=== PATIENT | male | born 1995 | race African-American/Black ===

== ENCOUNTER 2016-12-06 11:12 | Emergency (ER) | payer OTHER ==
[2016-12-06 12:21] VITALS: BP 132/72
== END 2016-12-06 13:14 | disposition left against medical advice (07) ==
LOC: UCEAST 11:12
DX: Z11.3 Encounter for screening for infections with a predominantly sexual mode of transmission (principal); Z53.21 Procedure and treatment not carried out due to patient leaving prior to being seen by health care provider

== ENCOUNTER 2016-12-07 10:46 | Emergency (ER) | payer OTHER ==
[2016-12-07 11:17] VITALS: BP 135/70
--- NOTE | 2016-12-07 12:05 | UC ---
Complaint Male HPI - HPI Summary HPI Summary: Tries to get regular STI testing (every 4 months). Last testing in Jul or Aug, has had 2 partners since then. Is in steady sexual relationship now. Denies any drainage, masses, sores, or blisters. Would prefer to avoid genital exam today. - History of Current Complaint Chief Complaint: UCGU Stated Complaint: STD TESTING Time Seen by Provider: 12/07/16 11:34 Hx Obtained From: Patient Onset/Duration: Resolved Severity Currently: None Location: None Aggravating Factor(s): Nothing Alleviating Factor(s): Nothing Associated Signs And Symptoms: Positive: Negative. Negative: Penile Swelling, Penile Discharge - Allergies/Home Medications Allergies/Adverse Reactions: Allergies Allergy/AdvReac Type Severity Reaction Status Date / Time No Known Allergies Allergy Verified 12/07/16 11:18 PMH/Surg Hx/FS Hx/Imm Hx Endocrine History Of: Denies: Diabetes, Thyroid Disease, Hyperthyroidism, Hypothyroidism, Dyslipidemia Cardiovascular History Of: Denies: Cardiac Disorders, Hypertension, Pacemaker/ICD, Myocardial Infarction , Congestive Heart Failure, Atrial Fibrillation, Deep Vein Thrombosis, Bleeding Disorders Respiratory History Of: Denies: COPD, Asthma, Bronchitis, Pneumonia, Pulmonary Embolism GI/ History Of: Denies: Gastroesophageal Reflux, Ulcer, Gastrointestinal Bleed, Gall Bladder Disease, Kidney Stones, Diverticulitis, Renal Disease, Urosepsis Neurological History Of: Denies: TIA, CVA, Dementia, Seizures, Migraine Psychological History Of: Denies: Anxiety, Depression, Bipolar Disorder, Schizophrenia, Post Traumatic Stress Disorder Cancer History Of: Denies: Lung Cancer, Colorectal Cancer, Breast Cancer, Prostate Cancer, Cervical Cancer Other History Of: Negative For: HIV, Hepatitis B, Hepatitis C, Anticoagulant Therapy - Surgical History Surgical History: Yes Surgery Procedure, Year, and Place: DENTAL - Family History Known Family History: Negative: Cardiac Disease, Hypertension - Social History Lives: Alone Alcohol Use: None Substance Use Type: None Smoking Status (MU): Never Smoked Tobacco Review of Systems Constitutional: Negative Skin: Negative Eyes: Negative ENT: Negative Respiratory: Negative Cardiovascular: Negative Gastrointestinal: Negative Genitourinary: Negative Motor: Negative Neurovascular: Negative Musculoskeletal: Negative Neurological: Negative Psychological: Negative All Other Systems Reviewed And Are Negative: Yes Physical Exam Triage Information Reviewed: Yes Appearance: Well-Appearing, No Pain Distress, Well-Nourished Vital Signs: Initial Vital Signs Temp 97.4 F 12/07/16 11:11 Pulse 75 12/07/16 11:11 Resp 18 12/07/16 11:11 BP 135/70 12/07/16 11:11 Pulse Ox 98 12/07/16 11:11 Vital Signs Reviewed: Yes Eye Exam: Normal Eyes: Positive: Conjunctiva Clear ENT Exam: Normal ENT: Positive: Normal ENT inspection, Hearing grossly normal, Pharynx normal, TMs normal Dental Exam: Normal Neck exam: Normal Neck: Positive: Supple, Nontender, No Lymphadenopathy Respiratory Exam: Normal Respiratory: Positive: Chest non-tender, Lungs clear, Normal breath sounds, No respiratory distress, No accessory muscle use Cardiovascular Exam: Normal Cardiovascular: Positive: RRR, No Murmur Abdomen Description: Positive: Soft. Negative: CVA Tenderness (R), CVA Tenderness (L) Musculoskeletal Exam: Normal Musculoskeletal: Positive: ROM Intact Neurological Exam: Normal Neurological: Positive: Alert Psychological Exam: Normal Skin Exam: Other - pt declines genital exam. Understands he will need to return if he discovers new symptoms. Complaint Male Course/Dx - Differential Dx/Diagnosis Provider Diagnoses: Routine STI testing Discharge - Discharge Plan Condition: Stable Disposition: HOME Patient Education Materials: Sexually Transmitted Diseases (ED), Condom Use (ED ) Referrals: No Primary Care Phys,NOPCP [Primary Care Provider] - Additional Instructions: Labwork pending. Call or return if you have any new symptoms.
[2016-12-08 09:55] LABS: Syphilis Index < 0.1 Index
== END 2016-12-07 12:10 | disposition home or self-care (01) ==
LOC: UCEAST 10:46
DX: Z11.3 Encounter for screening for infections with a predominantly sexual mode of transmission (principal)
CPT/HCPCS: 36415; 86592; 86703; 86803; 87491; 87591; 99211; G0463

== ENCOUNTER 2017-05-08 16:19 | Emergency (ER) | payer OTHER ==
[2017-05-08 16:30] VITALS: BP 116/61
--- NOTE | 2017-05-08 16:41 | UC ---
Skin Complaint HPI - HPI Summary HPI Summary: bumps on the back of his scalp x 2 weeks not pain , not itchy also c/o dry cough x 1week , no fever, no chills, no nasal congestion - History of Current Complaint Chief Complaint: UCSkin Time Seen by Provider: 05/08/17 16:25 Stated Complaint: BUMPS ON SCALP Hx Obtained From: Patient Onset/Duration: Gradual Onset, Lasting Weeks - 2, Still Present Timing: Constant Onset Severity: Moderate Current Severity: Moderate Location: Discrete - posterior scalp Aggravating: Nothing Alleviating: Nothing Associated Signs & Symptoms: Positive: Negative - Allergy/Home Medications Allergies/Adverse Reactions: Allergies Allergy/AdvReac Type Severity Reaction Status Date / Time No Known Allergies Allergy Verified 05/08/17 16:30 Home Medications: Home Medications Tizanidine HCl [Zanaflex] 2 mg PO BID 05/08/17 [History Confirmed 05/08/17] Review of Systems Constitutional: Negative Skin: Negative Eyes: Negative ENT: Negative Respiratory: Cough Cardiovascular: Negative Gastrointestinal: Negative All Other Systems Reviewed And Are Negative: Yes PMH/Surg Hx/FS Hx/Imm Hx Previously Healthy: Yes Other History Of: Negative For: HIV, Hepatitis B, Hepatitis C, Anticoagulant Therapy - Surgical History Surgical History: Yes Surgery Procedure, Year, and Place: DENTAL - Family History Known Family History: Negative: Cardiac Disease, Hypertension - Social History Alcohol Use: None Substance Use Type: None Smoking Status (MU): Never Smoked Tobacco Physical Exam Triage Information Reviewed: Yes Appearance: Well-Appearing, No Pain Distress, Well-Nourished Vital Signs: Initial Vital Signs Temp 98.0 F 05/08/17 16:24 Pulse 94 05/08/17 16:24 Resp 17 05/08/17 16:24 BP 116/61 05/08/17 16:24 Pulse Ox 100 05/08/17 16:24 Vital Signs Reviewed: Yes Eye Exam: Normal Eyes: Positive: Conjunctiva Clear ENT: Positive: Normal ENT inspection, Hearing grossly normal, Pharynx normal Neck exam: Normal Neck: Positive: Supple, Nontender Respiratory: Positive: Chest non-tender, Lungs clear, Normal breath sounds Cardiovascular: Positive: RRR, No Murmur, Pulses Normal Abdominal Exam: Normal Skin: Positive: rashes - multipl papular lesions posterior scalp , mild swelling , no tenderness, no discharge Course/Dx - Diagnoses Provider Diagnoses: folliculitis. bronchitis Discharge - Discharge Plan Condition: Stable Disposition: HOME Prescriptions: Cephalexin CAP* [Keflex CAP*] 500 mg PO TID #30 cap Guaifenesin-Codeine [Cheratussin AC] 10 ml PO Q8H #120 ml MDD 30 ml Mupirocin 2% CREAM* [Bactroban 2% CREAM*] 1 applic TOPICAL TID #60 gm Patient Education Materials: Acute Bronchitis (ED), Folliculitis (ED) Referrals: No Primary Care Phys,NOPCP [Primary Care Provider] -
== END 2017-05-08 16:44 | disposition home or self-care (01) ==
LOC: UCCORT 16:19
DX: L73.9 Follicular disorder, unspecified (principal); J40 Bronchitis, not specified as acute or chronic
CPT/HCPCS: 99212; G0463

== ENCOUNTER 2017-11-30 19:00 | Emergency (ER) | payer OTHER ==
--- NOTE | 2017-11-30 19:35 | UC ---
Laceration HPI - HPI Summary HPI Summary: Pt presents for stitch removal. He tells me that in [facility] 9 days ago he underwent hair transplant and the doctor he saw told him to have his sutures removed in 8- 10 days from the back of his head. Denies fever, chills, pain, or discharge - History Of Current Complaint Stated Complaint: STICTCH REMOVAL ON HEAD Time Seen by Provider: 11/30/17 19:27 Hx Obtained From: Patient Laceration Location: Head - Allergies/Home Medications Allergies/Adverse Reactions: Allergies Allergy/AdvReac Type Severity Reaction Status Date / Time No Known Allergies Allergy Verified 11/30/17 19:29 PMH/Surg Hx/FS Hx/Imm Hx - Additional Past Medical History Additional PMH: None Previously Healthy: Yes Other History Of: Negative For: HIV, Hepatitis B, Hepatitis C, Anticoagulant Therapy - Surgical History Surgical History: Yes Surgery Procedure, Year, and Place: DENTAL - Family History Known Family History: Negative: Cardiac Disease, Hypertension - Social History Occupation: Employed Full-time Lives: With Family Alcohol Use: None Substance Use Type: None Smoking Status (MU): Never Smoked Tobacco Review of Systems Constitutional: Negative Skin: Other - Sutures back of head Respiratory: Negative Cardiovascular: Negative Neurovascular: Negative Musculoskeletal: Negative Neurological: Negative Psychological: Negative All Other Systems Reviewed And Are Negative: Yes Physical Exam - Summary Physical Exam Summary: GENERAL: NAD. WDWN. No pain distress. SKIN: On the back of the head there is a continuous suture extending from the LEFT posterior temporal region to the RIGHT posterior temporal region. Approx 6- 7 inches in length. Several areas are scabbed over. No drainage, bleeding, edema , or erythema. Good approximation. NECK: Supple. Nontender. No lymphadenopathy. CHEST: CTAB. No r/r/w. No accessory muscle use. Breathing comfortably and in no distress. CV: RRR. Without m/r/g. Pulses intact. Brisk cap refill. NEURO: Alert. CN II-XII grossly intact. PSYCH: Age appropriate behavior. Triage Information Reviewed: Yes Vital Signs: Last Vital Signs 11/30/17 19:32 Temperature 98.6 F Pulse Rate 72 Respiratory 16 Rate Blood Pressure 112/64 (mmHg) O2 Sat by Pulse 99 Oximetry Vital Signs Reviewed: Yes Laceration Course/Dx - Course/Dx Course Of Treatment: Given the extent of the scabs and scar tissue, the continuous suture was removed in sections. Time spent was ~30minutes as pt experienced some pain with removal of the scabbed areas. After removal, the site was explored and no remaining prolene suture material was appreciated. Scant bleeding was stopped with direct pressure. - Differential Dx - Laceration/Wound Provider Diagnoses: Complex suture removal back of head Discharge - Sign-Out/Discharge Documenting (check all that apply): Discharge - Discharge Plan Condition: Stable Disposition: HOME Patient Education Materials: Stitches Removal (ED) Referrals: No Primary Care Phys,NOPCP [Primary Care Provider] - Jana Nicholson MD [Medical Doctor] - As Soon As Possible Additional Instructions: If you develop a fever, shortness of breath, chest pain, new or worsening symptoms - please call your PCP or go to the ED. - Billing Disposition and Condition Condition: STABLE Disposition: HOME
[2017-11-30 19:38] VITALS: BP 112/64
== END 2017-11-30 20:24 | disposition home or self-care (01) ==
LOC: UCCORT 19:00
DX: Z48.02 Encounter for removal of sutures (principal)
CPT/HCPCS: 99212; G0463

== ENCOUNTER 2017-12-28 08:53 | Emergency (ER) | payer OTHER ==
[2017-12-28 09:10] VITALS: BP 125/77
--- NOTE | 2017-12-28 10:29 | UC ---
Abdominal Pain Male HPI - HPI Summary HPI Summary: 22 y/o male presents to the urgent care c/o acid reflux and a burning sensation in his throat that worsen after he had 2 episodes of vomiting last night. Pt reports he has PMHX of GERD. He has not taking Omeprazole for the past 6 months. Reflux started 2 days ago and yesterday after eating pasta w/ orange juice he developed vomiting. Symptoms resolved today, but he wants a Rx for his GERD and flonase spray. He also request screening for STD's. He likes to do the STD screening every time he changes a partner. Pt denies fever, abdominal pain, urinary symptoms, Hx of STD's, penile discharge, rash, hematoemesis, diarrhea or blood in stool. - History of Current Complaint Chief Complaint: UCGI Stated Complaint: ABD PAIN Time Seen by Provider: 12/28/17 10:07 Hx Obtained From: Patient Onset/Duration: Gradual Onset, Lasting Days - 2 days, Resolved, Worse Since - last night Severity Initially: Moderate Severity Currently: Mild Pain Intensity: 1 Pain Scale Used: 0-10 Numeric Location: Epigastric Radiates: No Character: Burning Aggravating Factor(s): Food Associated Signs And Symptoms: Positive: Vomiting - 2 episodes last night. Negative: Fever, Cough, Chest Pain, Dizzy, Back Pain, Constipation, Blood in Stool, Urinary Symptoms, Diarrhea - Risk Factors Testicular Torsion: Negative Cardiac Risk Factors: Negative - Allergies/Home Medications Allergies/Adverse Reactions: Allergies Allergy/AdvReac Type Severity Reaction Status Date / Time No Known Allergies Allergy Verified 12/28/17 09:03 Home Medications: Home Medications Cephalexin CAP* [Keflex CAP*] 500 mg PO TID 12/28/17 [History Confirmed 12/28/17 ] PMH/Surg Hx/FS Hx/Imm Hx - Additional Past Medical History Additional PMH: Folliculitis Previously Healthy: Yes GI/ History: Gastroesophageal Reflux Other History Of: Negative For: HIV, Hepatitis B, Hepatitis C, Anticoagulant Therapy - Surgical History Surgical History: Yes Surgery Procedure, Year, and Place: DENTAL, hair transplant surgery 2017 - Family History Known Family History: Positive: None - Pt denies PMHX Negative: Cardiac Disease, Hypertension - Social History Occupation: Employed Full-time Lives: With Family Alcohol Use: None Substance Use Type: None Smoking Status (MU): Never Smoked Tobacco Review of Systems Constitutional: Negative Skin: Negative Eyes: Negative ENT: Sore Throat - burning Respiratory: Negative Cardiovascular: Negative Gastrointestinal: Abdominal Pain - epigastric mild, Vomiting - 2 episodes which resolved today Genitourinary: Negative Motor: Negative Neurovascular: Negative Musculoskeletal: Negative Neurological: Negative Psychological: Negative Is Patient Immunocompromised?: No All Other Systems Reviewed And Are Negative: Yes Physical Exam - Summary Physical Exam Summary: Vital Signs Reviewed: Yes General:Patient is a well developed and nourished male who is sitting comfortable in the examining table. Patient is not in any acute respiratory distress. Eyes: Positive: Conjunctiva Clear - PERRLA, EOMI, fundi grossly normal ENT: Positive: Normal ENT inspection, Hearing grossly normal, Pharynx normal, TMs normal Neck: Positive: Supple, Nontender, No Lymphadenopathy Respiratory: Positive: Chest non-tender, Lungs clear, Normal breath sounds, No respiratory distress Cardiovascular: Positive: RRR,S1 and S2 present, No Murmur, Pulses Normal, Brisk Capillary Refill Abdomen Description: Positive: Nontender, Abd: Flat with no distention. No surface trauma, scars, incisions. hyperactive bowel sounds present in all four quadrants. No tenderness, guarding, rigidity to palpation. No masses palpated, no pulsation in epigastric area. No organomegaly. Negative Coral signs. No periumbilical tenderness. No rebound in the lower quadrants. NT over McBurneys point. Good femoral pulses bilaterally. No hernia noted. No CVAT bilaterally Musculoskeletal: Positive: Strength Intact, ROM Intact, No Edema,FROM in all major joints, no edema, no cyanosis or clubbing. Neuro: Alert and oriented x 3. No acute neurological deficits. Speech is normal. Psychological: WNL Skin: Dry and warm Triage Information Reviewed: Yes Vital Signs: Initial Vital Signs Temp 97.7 F 12/28/17 09:04 Pulse 74 12/28/17 09:04 Resp 18 12/28/17 09:04 BP 125/77 12/28/17 09:04 Pulse Ox 99 12/28/17 09:04 Abd Pain Male Course/Dx - Course Course Of Treatment: 22 y/o male presents to the urgent care c/o acid reflux and a burning sensation in his throat that worsen after he had 2 episodes of vomiting last night. Pt reports he has PMHX of GERD. He has not taking Omeprazole for the past 6 months. Reflux started 2 days ago and yesterday after eating pasta w/ orange juice he developed vomiting. Symptoms resolved today, but he wants a Rx for his GERD and flonase spray. He also request screening for STD's. He likes to do the STD screening every time he changes a partner. Pt denies fever, abdominal pain, urinary symptoms, Hx of STD's, penile discharge, rash, hematoemesis, diarrhea or blood in stool.Hx obtained. PE : WNL. Pt Rx Omeprazole PO and Flonase nasal spray refill and to take Maalox to alleviate symptoms .Avoid NSAIDs and Pt educated of dietary modifications advised and advised to f/u w/ PCP of GI DR Juarez if not improvement of symptoms in 1 week. Also recommended to go immediately to the ER if he developed severe abdominal pain w/ vomiting for further Tx. D/C instruction explained. Pt 's urine sent to screen for GC/chlam. Trichomonas and HIV and herpes I&2 in blood. pt will be notified of the results. Pt left the clinic Hemodynamically stable, A&OX3. - Differential Dx/Clinical Impression Differential Diagnosis/HQI/PQRI: Appendicitis, Urinary Tract Infection, Other - gastritis, gastric ulcer, GERD Provider Diagnoses: 1- GERD. 2- Screening for STD's Discharge - Sign-Out/Discharge Documenting (check all that apply): Discharge/Admit/Transfer - D/c home - Discharge Plan Condition: Stable Disposition: HOME Prescriptions: Fluticasone NASAL SPRAY 50MCG* [Flonase NASAL SPRAY 50MCG*] 2 spray BOTH NARES DAILY #1 btl Omeprazole CAP* [Prilosec CAP* 20 MG] 20 mg PO BEDTIME #30 lupillo. Patient Education Materials: Sexually Transmitted Diseases (ED), Gastroesophageal Reflux Disease (ED) Referrals: [facility] [place] [facility] [Outside] - 3 Days Humberto Juarez MD [Medical Doctor] - If Needed Additional Instructions: 1- Please take Omeprazole PO as directed to alleviate symptoms. Avoid spicy food , chocolates, citric fruits, tomato sauce, etc. Avoid long periods of time w/o eating. increase fluid and eat soft meals until symptoms improve. 2- Take Maalox OTC q6hrs to alleviate symptoms of reflux. 3- If you develops fever or severe abdominal pain, vomiting please go to the ER , for further treatment. Otherwise f/u with your PCP or Mitering Machine Operator Dr Juarez in 1 week if not improvement of symptoms for further management 4-STDs screening has been setn to lab, you will be notified of any abnormality - Billing Disposition and Condition Condition: STABLE Disposition: HOME
[2017-12-29 13:23] LABS: Herpes Simplex Virus II IgG AB Negative (Negative)
--- NOTE | 2017-12-29 15:15 | UC ---
- Progress Note Progress Note: HSV 1 IGG positive. This is an insignificant finding as HSV1 is oral (cold sores /fever blisters) and shows evidence of past infection. It appears pt requested screening STD testing and was asymptomatic. HSV 2 negative (genital herpes). If he develops symptoms/sores, would most likely benefit more from IGM or culture. Discharge - Sign-Out/Discharge Documenting (check all that apply): Post-Discharge Follow Up - Discharge Plan Condition: Stable Disposition: HOME Prescriptions: Fluticasone NASAL SPRAY 50MCG* [Flonase NASAL SPRAY 50MCG*] 2 spray BOTH NARES DAILY #1 btl Omeprazole CAP* [Prilosec CAP* 20 MG] 20 mg PO BEDTIME #30 cap. Patient Education Materials: Sexually Transmitted Diseases (ED), Gastroesophageal Reflux Disease (ED) Referrals: [facility] [place] [facility] [Outside] - 3 Days Humberto Juarez MD [Medical Doctor] - If Needed Additional Instructions: 1- Please take Omeprazole PO as directed to alleviate symptoms. Avoid spicy food , chocolates, citric fruits, tomato sauce, etc. Avoid long periods of time w/o eating. increase fluid and eat soft meals until symptoms improve. 2- Take Maalox OTC q6hrs to alleviate symptoms of reflux. 3- If you develops fever or severe abdominal pain, vomiting please go to the ER , for further treatment. Otherwise f/u with your PCP or Multiple Punch Press Operator Dr Juarez in 1 week if not improvement of symptoms for further management 4-STDs screening has been setn to lab, you will be notified of any abnormality - Billing Disposition and Condition Condition: STABLE Disposition: HOME
--- NOTE | 2017-12-31 17:11 | UC ---
- Progress Note Progress Note: 12/31/2017 GC/chla negative. Pt requested these labs. Please notify Pt of negative results Domitila Malin PA-C Discharge - Sign-Out/Discharge Documenting (check all that apply): Discharge/Admit/Transfer - D/C home - Discharge Plan Condition: Stable Disposition: HOME Prescriptions: Fluticasone NASAL SPRAY 50MCG* [Flonase NASAL SPRAY 50MCG*] 2 spray BOTH NARES DAILY #1 btl Omeprazole CAP* [Prilosec CAP* 20 MG] 20 mg PO BEDTIME #30 cap. Patient Education Materials: Sexually Transmitted Diseases (ED), Gastroesophageal Reflux Disease (ED) Referrals: [facility] [place] [facility] [Outside] - 3 Days Humberto Juarez MD [Medical Doctor] - If Needed Additional Instructions: 1- Please take Omeprazole PO as directed to alleviate symptoms. Avoid spicy food , chocolates, citric fruits, tomato sauce, etc. Avoid long periods of time w/o eating. increase fluid and eat soft meals until symptoms improve. 2- Take Maalox OTC q6hrs to alleviate symptoms of reflux. 3- If you develops fever or severe abdominal pain, vomiting please go to the ER , for further treatment. Otherwise f/u with your PCP or Printing Agent Dr Juarez in 1 week if not improvement of symptoms for further management 4-STDs screening has been setn to lab, you will be notified of any abnormality - Billing Disposition and Condition Condition: STABLE Disposition: HOME
== END 2017-12-28 10:32 | disposition home or self-care (01) ==
LOC: UCEAST 08:53
DX: K21.9 Gastro-esophageal reflux disease without esophagitis (principal); B00.1 Herpesviral vesicular dermatitis; Z11.3 Encounter for screening for infections with a predominantly sexual mode of transmission; Z11.4 Encounter for screening for human immunodeficiency virus [HIV]; R11.10 Vomiting, unspecified; L73.9 Follicular disorder, unspecified
CPT/HCPCS: 36415; 86695; 86696; 86703; 87491; 87591; 87661; 99212; G0463

== ENCOUNTER 2018-01-03 14:13 | Emergency (ER) | payer OTHER ==
[2018-01-03 14:40] VITALS: BP 128/76
[2018-01-03] MEDS ORDERED: cefTRIAXone VIAL(*) 1,000 MG VIAL IM ONE (14:51)
[2018-01-03] MEDS ORDERED: Azithromycin TAB* 250 MG PO ONE (14:52)
[2018-01-03] MEDS ORDERED: cefTRIAXone VIAL(*) 250 MG VIAL IM ONE (14:58)
[2018-01-03] MEDS ORDERED: Lidocaine 1% MPF* 2 ML VIAL ONE (15:01)
--- NOTE | 2018-01-03 15:25 | UC ---
Complaint Male HPI - HPI Summary HPI Summary: Pt presents with concern for exposure to STD's after having unprotected intercourse last night. Pt was seen last week at [facility] for STD testing and was told his tests were all negative. - History of Current Complaint Chief Complaint: UCGU Stated Complaint: PERSONAL Time Seen by Provider: 01/03/18 14:24 Hx Obtained From: Patient Onset/Duration: Sudden Onset Severity Currently: None Pain Intensity: 0 Location: None Associated Signs And Symptoms: Positive: Negative - Allergies/Home Medications Allergies/Adverse Reactions: Allergies Allergy/AdvReac Type Severity Reaction Status Date / Time No Known Allergies Allergy Verified 01/03/18 14:32 Home Medications: Home Medications Omeprazole CAP* [Prilosec CAP* 20 MG] 20 mg PO BEDTIME PRN 01/03/18 [History Confirmed 01/03/18] PMH/Surg Hx/FS Hx/Imm Hx Previously Healthy: Yes Other History Of: Negative For: HIV, Hepatitis B, Hepatitis C, Anticoagulant Therapy - Surgical History Surgical History: Yes Surgery Procedure, Year, and Place: DENTAL, hair transplant surgery 2017 - Family History Known Family History: Positive: None - Pt denies PMHX Negative: Cardiac Disease, Hypertension - Social History Occupation: Student Lives: With Family Alcohol Use: Rare Substance Use Type: None Smoking Status (MU): Never Smoked Tobacco Have You Smoked in the Last Year: No Review of Systems Constitutional: Negative Skin: Negative Eyes: Negative ENT: Negative Respiratory: Negative Cardiovascular: Negative Gastrointestinal: Negative Genitourinary: Negative Motor: Negative Neurovascular: Negative Musculoskeletal: Negative Neurological: Negative Psychological: Negative Is Patient Immunocompromised?: No All Other Systems Reviewed And Are Negative: Yes Physical Exam Triage Information Reviewed: Yes Appearance: Well-Appearing Vital Signs: Initial Vital Signs Temp 97.6 F 01/03/18 14:33 Pulse 86 01/03/18 14:33 Resp 18 01/03/18 14:33 BP 128/76 01/03/18 14:33 Pulse Ox 98 01/03/18 14:33 Vital Signs Reviewed: Yes Eye Exam: Normal ENT: Positive: Hearing grossly normal Respiratory: Positive: No respiratory distress Musculoskeletal Exam: Normal Neurological Exam: Normal Psychological Exam: Normal Skin Exam: Normal Complaint Male Course/Dx - Differential Dx/Diagnosis Differential Diagnosis/HQI/PQRI: Other - STD exposure Provider Diagnoses: STD exposure. unsafe sex Discharge - Sign-Out/Discharge Documenting (check all that apply): Discharge/Admit/Transfer - Discharge Plan Condition: Stable Disposition: HOME Patient Education Materials: Sexually Transmitted Diseases (ED), Condom Use (ED ), Safe Sex (ED) Referrals: No Primary Care Phys,NOPCP [Primary Care Provider] - If Needed - Billing Disposition and Condition Condition: STABLE Disposition: HOME
== END 2018-01-03 15:30 | disposition home or self-care (01) ==
LOC: UCCORT 14:13
DX: Z20.2 Contact with and (suspected) exposure to infections with a predominantly sexual mode of transmission (principal); Z72.51 High risk heterosexual behavior
CPT/HCPCS: 87491; 87591; 96372; 99212; A9270-GY; G0463; J0696

== ENCOUNTER 2018-01-28 08:27 | Emergency (ER) | payer OTHER ==
[2018-01-28 08:33] VITALS: BP 150/86
[2018-01-28] MEDS ORDERED: Azithromycin TAB* 250 MG PO ONE (09:24)
[2018-01-28] MEDS ORDERED: cefTRIAXone VIAL(*) 250 MG VIAL IM ONE (09:24)
[2018-01-28] MEDS ORDERED: Lidocaine 1% MPF* 2 ML VIAL INJ ONE (09:25)
--- NOTE | 2018-01-28 09:26 | UC ---
Complaint Male HPI - HPI Summary HPI Summary: Patient to urgent care today with chief complaint of unprotected oral sexual exposure 3 days ago. Patient has no complaints of pain and burning With urination. Patient has no sores or open areas. Patient is here for testing and post exposure prophylaxis for sexually transmitted infections. - History of Current Complaint Chief Complaint: UCSTDScreening Stated Complaint: PERSONAL Time Seen by Provider: 01/28/18 09:16 Hx Obtained From: Patient Onset/Duration: Sudden Onset Pain Intensity: 0 Pain Scale Used: 0-10 Numeric Location: None Associated Signs And Symptoms: Positive: Negative - Allergies/Home Medications Allergies/Adverse Reactions: Allergies Allergy/AdvReac Type Severity Reaction Status Date / Time No Known Allergies Allergy Verified 01/28/18 08:34 PMH/Surg Hx/FS Hx/Imm Hx Previously Healthy: Yes Other History Of: Negative For: HIV, Hepatitis B, Hepatitis C, Anticoagulant Therapy - Surgical History Surgical History: Yes Surgery Procedure, Year, and Place: DENTAL, hair transplant surgery 2017 - Family History Known Family History: Positive: None - Pt denies PMHX Negative: Cardiac Disease, Hypertension - Social History Occupation: Employed Full-time Lives: With Family Alcohol Use: Rare Substance Use Type: None Smoking Status (MU): Never Smoked Tobacco Have You Smoked in the Last Year: No Review of Systems Constitutional: Negative Skin: Negative Eyes: Negative ENT: Negative Respiratory: Negative Cardiovascular: Negative Gastrointestinal: Negative Genitourinary: Negative Motor: Negative Neurovascular: Negative Musculoskeletal: Negative Neurological: Negative Psychological: Negative Is Patient Immunocompromised?: No All Other Systems Reviewed And Are Negative: Yes Physical Exam Triage Information Reviewed: Yes Appearance: Well-Appearing, No Pain Distress, Well-Nourished Vital Signs: Initial Vital Signs Temp 98 F 01/28/18 08:31 Pulse 80 01/28/18 08:31 Resp 16 01/28/18 08:31 BP 150/86 01/28/18 08:31 Pulse Ox 100 01/28/18 08:31 Vital Signs Reviewed: Yes Eye Exam: Normal Eyes: Positive: Conjunctiva Clear ENT Exam: Normal ENT: Positive: Normal ENT inspection, Hearing grossly normal. Negative: Trismus , Muffled voice, Hoarse voice Dental Exam: Normal Neck exam: Normal Neck: Positive: Supple, Nontender Respiratory Exam: Normal Respiratory: Positive: Chest non-tender, No respiratory distress, No accessory muscle use Cardiovascular Exam: Normal Cardiovascular: Positive: RRR, Brisk Capillary Refill Musculoskeletal Exam: Normal Musculoskeletal: Positive: Strength Intact, ROM Intact, No Edema Neurological Exam: Normal Neurological: Positive: Alert, Muscle Tone Normal Psychological Exam: Normal Skin Exam: Normal Complaint Male Course/Dx - Course Course Of Treatment: Urine to lab for coronary chlamydia, 1 g of Zithromax,250 MG of Rocephin, information about 6 sexual practices provided follow up at [facility] or return as needed - Differential Dx/Diagnosis Provider Diagnoses: postexposure prophylaxis from unprotected sex Discharge - Sign-Out/Discharge Documenting (check all that apply): Discharge/Admit/Transfer - Discharge Plan Condition: Stable Disposition: HOME Patient Education Materials: Safe Sex (ED) [facility] - Billing Disposition and Condition Condition: STABLE Disposition: Home
[2018-01-28] MEDS ORDERED: Lidocaine 1%* 5 ML VIAL ONE (09:49)
--- NOTE | 2018-01-30 07:53 | UC ---
- Progress Note Progress Note: GC/Ch negative Ljj 01/30/18 7:53 Discharge - Sign-Out/Discharge Documenting (check all that apply): Post-Discharge Follow Up - Discharge Plan Condition: Stable Disposition: HOME Patient Education Materials: Safe Sex (ED) Referrals: [facility] [Outside] - 2 Weeks - Billing Disposition and Condition Condition: STABLE Disposition: Home
== END 2018-01-28 09:40 | disposition home or self-care (01) ==
LOC: UCEAST 08:27
DX: Z11.3 Encounter for screening for infections with a predominantly sexual mode of transmission (principal)
CPT/HCPCS: 87491; 87591; 96372; 99212; A9270-GY; G0463; J0696

== ENCOUNTER 2018-03-23 20:46 | Emergency (ER) | payer OTHER ==
[2018-03-23 21:14] VITALS: BP 141/73
--- NOTE | 2018-03-23 21:15 | UC ---
Complaint Male HPI - HPI Summary HPI Summary: 22 yo male presents requesting testing for GC and chlamydia. He currently does not have any symptoms, but has had unprotected sexual activity with a new partner recently. Denies fever or chills - History of Current Complaint Chief Complaint: UCGU Stated Complaint: PRIVATE Time Seen by Provider: 03/23/18 20:59 Hx Obtained From: Patient Pain Intensity: 0 - Allergies/Home Medications Allergies/Adverse Reactions: Allergies Allergy/AdvReac Type Severity Reaction Status Date / Time No Known Allergies Allergy Verified 03/23/18 21:13 PMH/Surg Hx/FS Hx/Imm Hx - Additional Past Medical History Additional PMH: None Previously Healthy: Yes Other History Of: Negative For: HIV, Hepatitis B, Hepatitis C, Anticoagulant Therapy - Surgical History Surgical History: Yes Surgery Procedure, Year, and Place: DENTAL, hair transplant surgery 2017 - Family History Known Family History: Positive: None - Pt denies PMHX Negative: Cardiac Disease, Hypertension - Social History Alcohol Use: Rare Substance Use Type: None Smoking Status (MU): Never Smoked Tobacco Have You Smoked in the Last Year: No Review of Systems Constitutional: Negative Skin: Negative Respiratory: Negative Cardiovascular: Negative Gastrointestinal: Negative Genitourinary: Negative Neurovascular: Negative Neurological: Negative Psychological: Negative All Other Systems Reviewed And Are Negative: Yes Physical Exam - Summary Physical Exam Summary: GENERAL: NAD. WDWN. No pain distress. SKIN: No rashes, sores, lesions, or open wounds. NECK: Supple. Nontender. No lymphadenopathy. CHEST: CTAB. No r/r/w. No accessory muscle use. Breathing comfortably and in no distress. CV: RRR. Without m/r/g. Pulses intact. Brisk cap refill. ABDOMEN: Soft. NTTP. No distention or guarding. No CVA tenderness. Bowel sounds present NEURO: Alert. CN II-XII grossly intact. PSYCH: Age appropriate behavior. Triage Information Reviewed: Yes Vital Signs: Initial Vital Signs Temp 98.5 F 03/23/18 21:10 Pulse 82 03/23/18 21:10 Resp 18 03/23/18 21:10 BP 141/73 03/23/18 21:10 Pulse Ox 100 03/23/18 21:10 Vital Signs Reviewed: Yes Complaint Male Course/Dx - Course Course Of Treatment: Urine obtained for GC and chlamydia. Pt refused exam as he has no symptoms. He elected to undergo treatment prophylactic - Ceftriaxone and Azithroymcin given in clinic. - Differential Dx/Diagnosis Provider Diagnoses: High risk sexual activity Discharge - Sign-Out/Discharge Documenting (check all that apply): Patient Departure - Discharge Plan Condition: Stable Disposition: HOME Patient Education Materials: Chlamydia (ED), Safe Sex (ED) Referrals: No Primary Care Phys,NOPCP [Primary Care Provider] - Additional Instructions: If you develop a fever, shortness of breath, chest pain, new or worsening symptoms - please call your PCP or go to the ED. - Billing Disposition and Condition Condition: STABLE Disposition: Home
[2018-03-23] MEDS ORDERED: cefTRIAXone VIAL(*) 250 MG VIAL IM ONE (21:41)
[2018-03-23] MEDS ORDERED: Azithromycin TAB* 250 MG PO ONE (21:41)
[2018-03-23] MEDS ORDERED: Lidocaine 1% MPF* 2 ML VIAL INJ ONE (21:41)
[2018-03-23] MEDS ORDERED: Lidocaine 1%* 5 ML VIAL ONE (21:45)
[2018-03-23] MEDS ORDERED: Lidocaine 1%* 5 ML VIAL INJ ONE (22:00)
== END 2018-03-23 22:04 | disposition home or self-care (01) ==
LOC: UCEAST 20:46
DX: Z72.51 High risk heterosexual behavior (principal)
CPT/HCPCS: 87491; 87591; 96372; 99212; A9270-GY; G0463; J0696

== ENCOUNTER 2018-05-11 19:11 | Emergency (ER) | payer OTHER ==
[2018-05-11 19:31] VITALS: BP 135/71
[2018-05-11] MEDS ORDERED: cefTRIAXone VIAL(*) 250 MG VIAL IM ONE (20:01)
[2018-05-11] MEDS ORDERED: Azithromycin TAB* 250 MG PO ONE (20:01)
[2018-05-11] MEDS ORDERED: Lidocaine 1% MPF* 2 ML VIAL INJ ONE (20:02)
--- NOTE | 2018-05-11 20:05 | UC ---
Complaint Male HPI - HPI Summary HPI Summary: patient reports having unprotected sex 1 week ago---patient deies symptoms and is unsure if the other constitution party had an infection of any symptoms--no pain burning urgency frequency or drip. - History of Current Complaint Chief Complaint: UCSTDScreening Stated Complaint: STD CHECK Time Seen by Provider: 05/11/18 19:52 Hx Obtained From: Patient Severity Currently: None Pain Intensity: 0 Pain Scale Used: 0-10 Numeric Location: None Aggravating Factor(s): Nothing Alleviating Factor(s): Nothing Associated Signs And Symptoms: Positive: Negative - Allergies/Home Medications Allergies/Adverse Reactions: Allergies Allergy/AdvReac Type Severity Reaction Status Date / Time No Known Allergies Allergy Verified 03/23/18 21:13 PMH/Surg Hx/FS Hx/Imm Hx Previously Healthy: Yes Other History Of: Negative For: HIV, Hepatitis B, Hepatitis C, Anticoagulant Therapy - Surgical History Surgical History: Yes Surgery Procedure, Year, and Place: DENTAL, hair transplant surgery 2017 - Family History Known Family History: Positive: None - Pt denies PMHX Negative: Cardiac Disease, Hypertension - Social History Occupation: Employed Full-time, Student Lives: With Family Alcohol Use: Occasionally Substance Use Type: None Smoking Status (MU): Never Smoked Tobacco Have You Smoked in the Last Year: No Review of Systems Constitutional: Negative Skin: Negative Eyes: Negative ENT: Negative Respiratory: Negative Cardiovascular: Negative Gastrointestinal: Negative Genitourinary: Negative, Other - unprotected sex with female partner 1 week ago Motor: Negative Neurovascular: Negative Musculoskeletal: Negative Neurological: Negative Psychological: Negative Is Patient Immunocompromised?: No All Other Systems Reviewed And Are Negative: Yes Physical Exam Triage Information Reviewed: Yes Appearance: Well-Appearing, No Pain Distress, Well-Nourished Vital Signs: Initial Vital Signs Temp 97.6 F 05/11/18 19:25 Pulse 76 05/11/18 19:25 Resp 24 05/11/18 19:25 BP 135/71 05/11/18 19:25 Pulse Ox 100 05/11/18 19:25 Vital Signs Reviewed: Yes Eye Exam: Normal Eyes: Positive: Conjunctiva Clear ENT Exam: Normal ENT: Positive: Normal ENT inspection, Hearing grossly normal. Negative: Trismus , Muffled voice, Hoarse voice Dental Exam: Normal Neck exam: Normal Neck: Positive: Supple, Nontender Respiratory Exam: Normal Respiratory: Positive: Chest non-tender, No respiratory distress, No accessory muscle use Cardiovascular Exam: Normal Cardiovascular: Positive: RRR, Brisk Capillary Refill Musculoskeletal Exam: Normal Musculoskeletal: Positive: Strength Intact, ROM Intact, No Edema Neurological Exam: Normal Neurological: Positive: Alert, Muscle Tone Normal Psychological Exam: Normal Skin Exam: Normal Complaint Male Course/Dx - Course Course Of Treatment: rocephin and zithromax, safe sex practices encouraged, follow at [facility] in 2 weeks to confirm negative test - Differential Dx/Diagnosis Provider Diagnoses: std pep Discharge - Sign-Out/Discharge Documenting (check all that apply): Patient Departure All imaging exams completed and their final reports reviewed: No Studies - Discharge Plan Condition: Stable Disposition: HOME Patient Education Materials: Safe Sex (ED) Referrals: [facility] [Outside] - 2 Weeks (to assure negative tests) - Billing Disposition and Condition Condition: STABLE Disposition: Home
== END 2018-05-11 20:32 | disposition home or self-care (01) ==
LOC: UCCORT 19:11
DX: Z11.3 Encounter for screening for infections with a predominantly sexual mode of transmission (principal)
CPT/HCPCS: 96372; 99212; A9270-GY; G0463; J0696

== ENCOUNTER 2018-09-12 08:59 | Emergency (ER) | payer OTHER ==
[2018-09-12 09:22] VITALS: BP 161/94
--- NOTE | 2018-09-12 09:35 | UC ---
Complaint Male HPI - HPI Summary HPI Summary: 1.concern about stds had unprotected sex one week ago with a new partner only one time feeling very uncomfortable and very concern about STDs pt. has no symptoms , denies any dysuria, no discharge, no fever, no chills 2. GERD , on PPI , requesting a refill of his meds - History of Current Complaint Chief Complaint: UCGeneralIllness Stated Complaint: PERSONAL Time Seen by Provider: 09/12/18 09:22 Hx Obtained From: Patient Onset/Duration: Sudden Onset, Lasting Weeks - 1 Timing: Lasting Weeks - 1 Severity Currently: None Pain Intensity: 0 Location: None Aggravating Factor(s): Nothing Alleviating Factor(s): Nothing Associated Signs And Symptoms: Negative: Dysuria, Penile Swelling, Penile Discharge - Allergies/Home Medications Allergies/Adverse Reactions: Allergies Allergy/AdvReac Type Severity Reaction Status Date / Time No Known Allergies Allergy Verified 09/12/18 09:14 PMH/Surg Hx/FS Hx/Imm Hx GI/ History: Gastroesophageal Reflux Other History Of: Negative For: HIV, Hepatitis B, Hepatitis C, Anticoagulant Therapy - Surgical History Surgical History: Yes Surgery Procedure, Year, and Place: DENTAL, hair transplant surgery 2017 - Family History Known Family History: Positive: None - Pt denies PMHX Negative: Cardiac Disease, Hypertension - Social History Alcohol Use: Rare Substance Use Type: None Smoking Status (MU): Never Smoked Tobacco Have You Smoked in the Last Year: No Review of Systems All Other Systems Reviewed And Are Negative: Yes Constitutional: Positive: Negative Skin: Positive: Negative Eyes: Positive: Negative ENT: Positive: Negative Respiratory: Positive: Negative Cardiovascular: Positive: Negative Gastrointestinal: Positive: Negative Genitourinary: Positive: Negative Is Patient Immunocompromised?: No Physical Exam Triage Information Reviewed: Yes Appearance: Well-Appearing, No Pain Distress, Well-Nourished Vital Signs: Initial Vital Signs Temp 97.8 F 09/12/18 09:15 Pulse 87 09/12/18 09:15 Resp 18 09/12/18 09:15 BP 161/94 09/12/18 09:15 Pulse Ox 98 09/12/18 09:15 Vital Signs Reviewed: Yes Eye Exam: Normal Eyes: Positive: Conjunctiva Clear ENT: Positive: Normal ENT inspection, Hearing grossly normal, Pharynx normal Neck: Positive: Supple, Nontender, No Lymphadenopathy Respiratory: Positive: Chest non-tender, Lungs clear, Normal breath sounds Cardiovascular: Positive: RRR, No Murmur, Pulses Normal Abdomen Description: Positive: Nontender, No Organomegaly, Soft. Negative: CVA Tenderness (R), CVA Tenderness (L), Distended, Guarding Bowel Sounds: Positive: Present Skin Exam: Normal Complaint Male Course/Dx - Differential Dx/Diagnosis Provider Diagnosis: Concern about STD in male without diagnosis, GERD (gastroesophageal reflux disease) Discharge - Sign-Out/Discharge Documenting (check all that apply): Patient Departure All imaging exams completed and their final reports reviewed: No Studies - Discharge Plan Condition: Stable Disposition: HOME Prescriptions: Azithromycin TAB* [Zithromax TAB (Z-SURENDRA) 250 mg #6 tabs] 4 mg PO DAILY #4 tab Omeprazole 40 mg PO DAILY #30 capsule. Patient Education Materials: Sexually Transmitted Diseases (ED), Safe Sex (ED) , Gastroesophageal Reflux Disease (ED) Referrals: No Primary Care Phys,NOPCP [Primary Care Provider] - If Needed - Billing Disposition and Condition Condition: STABLE Disposition: Home
[2018-09-12] MEDS ORDERED: Lidocaine 1% MPF* 2 ML VIAL ONE (09:36)
[2018-09-12] MEDS: cefTRIAXone VIAL(*) 250 MG VIAL IM ONE (09:41)
--- NOTE | 2018-09-13 07:14 | UC ---
- Progress Note Progress Note: HIV 1 + 2 neg please call pt with result ljj 09/13/18 Course/Dx - Diagnoses Provider Diagnoses: Concern about STD in male without diagnosis, GERD (gastroesophageal reflux disease) Discharge - Sign-Out/Discharge Documenting (check all that apply): Post-Discharge Follow Up All imaging exams completed and their final reports reviewed: No Studies - Discharge Plan Condition: Stable Disposition: HOME Prescriptions: Azithromycin TAB* [Zithromax TAB (Z-SURENDRA) 250 mg #6 tabs] 4 mg PO DAILY #4 tab Omeprazole 40 mg PO DAILY #30 capsule. Patient Education Materials: Sexually Transmitted Diseases (ED), Safe Sex (ED) , Gastroesophageal Reflux Disease (ED) Referrals: No Primary Care Phys,NOPCP [Primary Care Provider] - If Needed - Billing Disposition and Condition Condition: STABLE Disposition: Home
== END 2018-09-12 10:18 | disposition home or self-care (01) ==
LOC: UCCORT 08:59
DX: Z20.2 Contact with and (suspected) exposure to infections with a predominantly sexual mode of transmission (principal); K21.9 Gastro-esophageal reflux disease without esophagitis
CPT/HCPCS: 36415; 86703; 87491; 87591; 96372; 99212; G0463; J0696

== ENCOUNTER 2018-12-23 16:00 | Emergency (ER) | payer OTHER ==
[2018-12-23 16:28] VITALS: BP 126/57
[2018-12-23] MEDS ORDERED: cefTRIAXone VIAL(*) 250 MG VIAL IM ONE (17:08)
[2018-12-23] MEDS ORDERED: Azithromycin TAB* 250 MG PO ONE (17:08)
--- NOTE | 2018-12-23 17:17 | UC ---
Abdominal Pain Male HPI - HPI Summary HPI Summary: 23 year old male with no PMH, states was told by friends that a female he had vaginal intercourse with was + for STD's, does not know which ones. Asymptomatic, no urinary symptoms, drainage from penix, rashes, lesions. Declines examination of genitals. Declined HIV testing no abdominal pains Also c/o throat pain x several week, dry intermittent cough, pain with swallowing, fever several days ago, nothing since. no treatment, no improvement. no ear pain, nasal congestion, pain. - History of Current Complaint Chief Complaint: UCGU Stated Complaint: PERSONAL Time Seen by Provider: 12/23/18 16:30 Hx Obtained From: Patient Onset/Duration: Sudden Onset, Lasting Weeks - throat pain Timing: Constant Pain Intensity: 0 Pain Scale Used: 0-10 Numeric Location: Diffuse - throat Character: Burning, Sharp Aggravating Factor(s): Other - swallowing - Allergies/Home Medications Allergies/Adverse Reactions: Allergies Allergy/AdvReac Type Severity Reaction Status Date / Time No Known Allergies Allergy Verified 12/23/18 16:28 PMH/Surg Hx/FS Hx/Imm Hx Previously Healthy: Yes Other History Of: Negative For: HIV, Hepatitis B, Hepatitis C, Anticoagulant Therapy - Surgical History Surgical History: Yes Surgery Procedure, Year, and Place: DENTAL, hair transplant surgery 2017 - Family History Known Family History: Positive: None - Pt denies PMHX Negative: Cardiac Disease, Hypertension - Social History Alcohol Use: Weekly Substance Use Type: None Smoking Status (MU): Never Smoked Tobacco Have You Smoked in the Last Year: No Review of Systems All Other Systems Reviewed And Are Negative: Yes ENT: Positive: Sore Throat Is Patient Immunocompromised?: No Physical Exam Triage Information Reviewed: Yes Appearance: Well-Appearing, No Pain Distress, Well-Nourished Vital Signs: Initial Vital Signs Temp 97.8 F 12/23/18 16:25 Pulse 80 12/23/18 16:25 Resp 16 12/23/18 16:25 BP 126/57 12/23/18 16:25 Pulse Ox 100 12/23/18 16:25 Vital Signs Reviewed: Yes Eyes: Positive: Conjunctiva Clear ENT: Positive: Pharyngeal erythema, TMs normal, Tonsillar swelling, Tonsillar exudate - B/L, worse on L, Uvula midline. Negative: Sinus tenderness Dental Exam: Normal Neck: Positive: Supple, Nontender, No Lymphadenopathy. Negative: Nuchal Rigidity Abdomen Description: Positive: Nontender, No Organomegaly, Soft, Bruit. Negative: CVA Tenderness (R), CVA Tenderness (L), Distended, Guarding, Hepatomegaly, Splenomegaly Musculoskeletal Exam: Normal Neurological Exam: Normal Psychological Exam: Normal Skin Exam: Normal Abd Pain Male Course/Dx - Course Course Of Treatment: rapid strep +, antibiotics given, folow up with PCP. prophylaxis for STD given to patient after discussion of risks and benefits. no sexual contact x 7 days. - Differential Dx/Clinical Impression Provider Diagnosis: STD exposure, Strep throat Discharge - Sign-Out/Discharge Documenting (check all that apply): Patient Departure All imaging exams completed and their final reports reviewed: No Studies - Discharge Plan Condition: Good Disposition: HOME Prescriptions: Amoxicillin PO (*) [Amoxicillin 500 MG CAP*] 500 mg PO Q12H #20 cap Patient Education Materials: Sexually Transmitted Diseases (ED), Condom Use (ED ), Strep Throat (ED) Referrals: No Primary Care Phys,NOPCP [Primary Care Provider] - Additional Instructions: - Antibiotics as directed - Results from urine testing for STD will be completed in 2-3 days - Prophylaxis for Chlamydia, Gonorrhea given at urgent care. No unprotected sex for 7 days - Increase fluid intake - Increase yogurt, probiotic intake due to antibiotics - Follow up with primary physician within 1-2 weeks for repeat evaluation - Billing Disposition and Condition Condition: GOOD Disposition: Home
[2018-12-23] MEDS ORDERED: Lidocaine 1% INJ* 10 MG/ML 30 ML SDV INJ ONE (17:23)
[2018-12-23] MEDS ORDERED: Lidocaine 1%* 5 ML VIAL INJ ONE (17:27)
[2018-12-25 11:23] LABS: Neisseria gonorrhoeae (GC) RNA Negative (Negative)
== END 2018-12-23 17:40 | disposition home or self-care (01) ==
LOC: UCEAST 16:00
DX: Z20.2 Contact with and (suspected) exposure to infections with a predominantly sexual mode of transmission (principal); J02.0 Streptococcal pharyngitis
CPT/HCPCS: 87491; 87591; 87651; 96372; 99212; A9270-GY; G0463; J0696

== ENCOUNTER 2018-12-30 10:36 | Emergency (ER) | payer OTHER ==
[2018-12-30 11:11] VITALS: BP 132/79
[2018-12-30] MEDS ORDERED: Fluorescein Sodium TOPICAL* 1 MG TEST STRIP OPHTHALMIC ONE (11:28)
--- NOTE | 2018-12-30 11:46 | UC ---
Eye Complaint HPI - HPI Summary HPI Summary: Pt presents with c/o right eye pain s/p getting superglue in his eye last evening. Pt states that he feels a FB in inner corner of right eye aand eye is painful. he flushed his eye at home post getting glue in eye. - History of Current Complaint Chief Complaint: UCEye Stated Complaint: RT EYE CONCERN Time Seen by Provider: 12/30/18 11:20 Hx Obtained From: Patient Onset/Duration: Sudden Onset, Lasting Days, Still Present Timing: Constant Severity Initially: Mild Severity Currently: Mild Pain Intensity: 2 Character: Foreign Body Sensation Aggravating Factor(s): Blinking Alleviating Factor(s): Nothing Associated Signs And Symptoms: Positive: Drainage (Clear) - Risk Factors Penetrating Injury Risk Factor: Negative Globe Rupture Risk Factors: Negative Acute Glaucoma Risk Factors: Negative Optic Artery Occlusion Risk Factors: Negative - Allergies/Home Medications Allergies/Adverse Reactions: Allergies Allergy/AdvReac Type Severity Reaction Status Date / Time No Known Allergies Allergy Verified 12/30/18 11:08 PMH/Surg Hx/FS Hx/Imm Hx Previously Healthy: Yes Other History Of: Negative For: HIV, Hepatitis B, Hepatitis C, Anticoagulant Therapy - Surgical History Surgical History: Yes Surgery Procedure, Year, and Place: DENTAL, hair transplant surgery 2018 - Family History Known Family History: Positive: None - Pt denies PMHX Negative: Cardiac Disease, Hypertension - Social History Occupation: Employed Full-time, Student Lives: Alone Alcohol Use: Occasionally Substance Use Type: None Smoking Status (MU): Never Smoked Tobacco Have You Smoked in the Last Year: No - Immunization History Vaccination Up to Date: Yes Review of Systems All Other Systems Reviewed And Are Negative: Yes Constitutional: Positive: Negative Skin: Positive: Negative Eyes: Positive: Eye Redness, Other - FB sensation ENT: Positive: Negative Respiratory: Positive: Negative Cardiovascular: Positive: Negative Gastrointestinal: Positive: Negative Genitourinary: Positive: Negative Motor: Positive: Negative Neurovascular: Positive: Negative Musculoskeletal: Positive: Negative Neurological: Positive: Negative Psychological: Positive: Negative Is Patient Immunocompromised?: No Physical Exam Triage Information Reviewed: Yes Appearance: Well-Appearing Vital Signs: Initial Vital Signs Temp 97.8 F 12/30/18 11:08 Pulse 82 12/30/18 11:08 Resp 14 12/30/18 11:08 BP 132/79 12/30/18 11:08 Pulse Ox 100 12/30/18 11:08 Vital Signs Reviewed: Yes Eyes: Positive: Other: - fluorascein uptake at 7 to 8 o'clock position ENT Exam: Normal Dental Exam: Normal Neck exam: Normal Respiratory Exam: Normal Cardiovascular Exam: Normal Musculoskeletal Exam: Normal Neurological Exam: Normal Psychological Exam: Normal Skin Exam: Normal Eye Complaint Course/Dx - Course Course Of Treatment: I discussed with the pt my concerns abotu a chemical burn or residual glue on eye and requetsted that he go to eye care provider [facility]. I spoke to Dr. Lynch office. They said unsure if his insurance would be accepted, pt called insurance, insurance said they would cover the cost of his visit to Dr. Lynch. - Differential Dx/Diagnosis Differential Diagnosis/HQI/PQRI: Corneal Abrasion, Foreign Body Provider Diagnosis: Corneal abrasion, right Discharge - Sign-Out/Discharge Documenting (check all that apply): Patient Departure All imaging exams completed and their final reports reviewed: No Studies - Discharge Plan Condition: Stable Disposition: HOME Patient Education Materials: [employer] (ED) Forms: *School Release Referrals: Juve Lynch OD [Doctor of Osteopathy] - No Primary Care Phys,NOPCP [Primary Care Provider] - Additional Instructions: Please go directly to Dr. Lynch's office. - Billing Disposition and Condition Condition: STABLE Disposition: Home
== END 2018-12-30 12:36 | disposition home or self-care (01) ==
LOC: UCCORT 10:36
DX: S05.01XA Injury of conjunctiva and corneal abrasion without foreign body, right eye, initial encounter (principal); X58.XXXA Exposure to other specified factors, initial encounter; Y92.019 Unspecified place in single-family (private) house as the place of occurrence of the external cause
CPT/HCPCS: 99211; A9270-GY; G0463

== ENCOUNTER 2019-09-01 11:15 | Emergency (ER) | payer OTHER ==
[2019-09-01 11:36] VITALS: BP 168/77
--- NOTE | 2019-09-01 11:51 | UC ---
Complaint Male HPI - HPI Summary HPI Summary: 23 yo male desires treatment for possible urethritis New partner dysuria x 1 no urethral discharge He is heading out of town and wants to be treated prior to results decline HIV/syphilis/hep c testing - History of Current Complaint Chief Complaint: UCSTDScreening Stated Complaint: PERSONAL Time Seen by Provider: 09/01/19 11:26 Hx Obtained From: Patient Onset/Duration: Other - NA Severity Initially: Mild Severity Currently: None Pain Intensity: 0 Location: Penis - one episode of dyuria Associated Signs And Symptoms: Positive: Dysuria - Allergies/Home Medications Allergies/Adverse Reactions: Allergies Allergy/AdvReac Type Severity Reaction Status Date / Time No Known Allergies Allergy Verified 09/01/19 11:30 Home Medications: Home Medications NK [No Home Medications Reported] 09/01/19 [History Confirmed 09/01/19] PMH/Surg Hx/FS Hx/Imm Hx Previously Healthy: Yes Other History Of: Negative For: HIV, Hepatitis B, Hepatitis C, Anticoagulant Therapy - Surgical History Surgical History: Yes Surgery Procedure, Year, and Place: DENTAL, hair transplant surgery 2017 - Family History Known Family History: Positive: None - Pt denies PMHX Negative: Cardiac Disease, Hypertension - Social History Alcohol Use: Rare Substance Use Type: None Smoking Status (MU): Never Smoked Tobacco Have You Smoked in the Last Year: No - Immunization History Vaccination Up to Date: Yes Review of Systems All Other Systems Reviewed And Are Negative: Yes Constitutional: Positive: Negative Skin: Positive: Negative Eyes: Positive: Negative ENT: Positive: Negative Respiratory: Positive: Negative Cardiovascular: Positive: Negative Gastrointestinal: Positive: Negative Genitourinary: Positive: Dysuria - x1 otherwise negative Motor: Positive: Negative Neurovascular: Positive: Negative Musculoskeletal: Positive: Negative Neurological: Positive: Negative Psychological: Positive: Negative Physical Exam Triage Information Reviewed: Yes Appearance: Well-Appearing, No Pain Distress, Well-Nourished Vital Signs: Initial Vital Signs Temp 98.1 F 09/01/19 11:30 Pulse 86 09/01/19 11:30 Resp 18 09/01/19 11:30 BP 168/77 09/01/19 11:30 Pulse Ox 98 09/01/19 11:30 Vital Signs Reviewed: Yes Eyes: Positive: Conjunctiva Clear ENT: Positive: Hearing grossly normal, Uvula midline. Negative: Nasal congestion, Nasal drainage, Tonsillar exudate, Trismus, Muffled voice, Hoarse voice Dental Exam: Normal Neck: Positive: Supple, Nontender, No Lymphadenopathy Respiratory: Positive: Lungs clear, Normal breath sounds, No respiratory distress, No accessory muscle use Cardiovascular: Positive: RRR, No Murmur Musculoskeletal: Positive: ROM Intact, No Edema Neurological: Positive: Alert Psychological Exam: Normal Skin Exam: Normal Complaint Male Course/Dx - Differential Dx/Diagnosis Provider Diagnosis: At risk for sexually transmitted disease due to unprotected sex, Elevated BP without diagnosis of hypertension Discharge ED - Sign-Out/Discharge Documenting (check all that apply): Patient Departure All imaging exams completed and their final reports reviewed: No Studies - Discharge Plan Condition: Stable Disposition: HOME Patient Education Materials: Safe Sex (ED) [place]errals: [facility] [place]] - 2 Weeks (recheck BP in 2-20 weeks) - Billing Disposition and Condition Condition: STABLE Disposition: Home
[2019-09-01] MEDS ORDERED: Azithromycin TAB* 250 MG PO ONE (11:52)
[2019-09-01] MEDS ORDERED: cefTRIAXone VIAL(*) 250 MG VIAL IM ONE (11:54)
[2019-09-01] MEDS ORDERED: Lidocaine 1% MPF ** 5 ML VIAL IM ONE (11:54)
[2019-09-02 12:31] LABS: Chlamydia trachomatis NAA Negative (Negative); Neisseria gonorrhoeae (GC) NAA Negative (Negative)
== END 2019-09-01 12:13 | disposition home or self-care (01) ==
LOC: UCEAST 11:15
DX: Z20.2 Contact with and (suspected) exposure to infections with a predominantly sexual mode of transmission (principal); R03.0 Elevated blood-pressure reading, without diagnosis of hypertension
CPT/HCPCS: 87491; 87591; 99211; A9270-GY; G0463; J0696

== ENCOUNTER 2019-12-08 09:14 | Emergency (ER) | payer OTHER ==
[2019-12-08 09:28] VITALS: BP 142/81
[2019-12-08] MEDS ORDERED: Tetan/Diph/Pertus SYR(Tdap)* 0.5 ML SYR(BOOSTRIX) use SYR contains LATEX IM ONE ×2 (09:34→10:21)
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
[2019-12-08] MEDS ORDERED: Raltegravir* 400 MG TAB PO ONE (10:04)
[2019-12-08] MEDS ORDERED: Tenofovir/Emtricitab 200/300 * TAB PO ONE (10:04)
[2019-12-08 14:25] LABS: ABS Lymphocytes 2.2 10^3/ul (1.0-4.8); ABS Monocytes 0.6 10^3/ul (0-0.8); ABS Neutrophils 2.8 10^3/ul (1.5-7.7); Eosinophil % 0.6 %; Hematocrit 43 % (42-52); Hemoglobin 14.5 g/dL (14.0-18.0); Lymphocyte % 39.5 %; Mean Corpuscular HGB Conc 34 g/dL (31-36); Mean Corpuscular Hemoglobin 29 pg (27-31); Mean Corpuscular Volume 86 fL (80-94); Mean Platelet Volume 8.3 fL (7.4-10.4); Nucleated Red Blood Cells % 0.1; Platelet Count 227 10^3/uL (150-450); Red Blood Count 4.95 10^6 /uL (4.18-5.48); Red Cell Distribution Width 13 % (10-15); White Blood Count 5.6 10^3/uL (3.5-10.8)
[2019-12-08 14:29] LABS: Albumin 4.4 g/dL (3.2-5.2); Calcium 9.4 mg/dL (8.6-10.3); Potassium 3.7 mmol/L (3.5-5.0); Total Bilirubin 0.5 mg/dL (0.2-1.0)
[2019-12-08 14:35] LABS: Albumin/Globulin Ratio 1.5 (1-3); BUN/Creatinine Ratio 9.6 (8-20); EGFR African American 107.1 (>60); EGFR Non-African American 88.5 (>60); Globulin 2.9 g/dL (2-4); Total Protein 7.3 g/dL (6.4-8.9)
[2019-12-08 15:04] LABS: Hepatitis B Surface Antigen Nonreactive (Nonreactive)
[2019-12-08 15:21] LABS: Hepatitis B Surface Ab Immune (Immune); Hepatitis C Antibody Negative (Negative)
[2019-12-08 15:31] LABS: HIV 4th Generation Nonreactive (Nonreactive)
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
== END 2019-12-08 10:40 | disposition home or self-care (01) ==
LOC: UCCORT 09:14
DX: S61.432A Puncture wound without foreign body of left hand, initial encounter (principal); S60.512A Abrasion of left hand, initial encounter; Y04.1XXA Assault by human bite, initial encounter; Y93.89 Activity, other specified; Y92.159 Unspecified place in reform school as the place of occurrence of the external cause; Y99.0 Civilian activity done for income or pay; Z23 Encounter for immunization
CPT/HCPCS: 36415; 80053; 85025; 86706; 86803; 87340; 87389; 90715; 96372; 99213; G0463